=== PATIENT | female | born 1960 | race Caucasian/White ===

== ENCOUNTER 2020-02-15 05:47 | Day surgery (SDC) | payer MEDICAID, OTHER ==
[~2020-02-15] VITALS: Ht 170.2 cm; Wt 76.3 kg
[2020-02-15] MEDS ORDERED: ONDANSETRON 2MG/ML, 2ML ONE ×2 (06:12→10:38)
[2020-02-15] MEDS ORDERED: MORPHINE SULFATE 4 MG/ML, 1ML ONE ×2 (06:13→07:35)
[2020-02-15] MEDS ORDERED: FAMOTIDINE 20 MG/2 ML ONE (06:13)
--- NOTE | 2020-02-15 06:17 | NUR ---
Patient presents to ER c/o heartburn x a couple weeks and epigastric pain x a couple hours. Patient c/o N/V. Patient is in NAD. Respirations even and unlabored.
[2020-02-15] MEDS: MORPHINE SULFATE 4 MG/ML, 1ML IVPush PRN ×2 (06:28→07:38)
--- NOTE | 2020-02-15 06:28 | NUR ---
radiology delay- IV and EKG
[2020-02-15] MEDS ORDERED: ONDANSETRON 2MG/ML, 2ML IVPush ONE (06:30)
[2020-02-15] MEDS ORDERED: SODIUM CHLORIDE FLUSH 10ML SYR IVF ONE (06:30)
[2020-02-15] MEDS ORDERED: FAMOTIDINE 20 MG/2 ML IVPush ONE (06:30)
[2020-02-15 06:45] LABS: BASOPHILS # (AUTO) 0.02 x10^3/uL (0-0.1); BASOPHILS % (AUTO) 0 % (0-1); EOSINOPHILS # (AUTO) 0.08 x10^3/uL (0-0.4); EOSINOPHILS % (AUTO) 1 % (1-7); LYMPHOCYTES # (AUTO) 1.57 x10^3/uL (1-3.4); LYMPHOCYTES % (AUTO) 24 % (22-44); MD NO; MEAN CORPUSCULAR HEMOGLOBIN 30.8 pg (27.0-34.8); MEAN CORPUSCULAR HGB CONC 33.5 g/dL (32.4-35.8); MEAN PLATELET VOLUME 8.4 fL (7.4-10.4); MONOCYTES # (AUTO) 0.34 x10^3/uL (0.2-0.8); MONOCYTES % (AUTO) 5 % (2-9); NEUTROPHILS # (AUTO) 4.56 x10^3/uL (1.8-6.8); NEUTROPHILS % (AUTO) 70 % (42-75); PLATELET COUNT 246 x10^3/uL (130-400); RED BLOOD COUNT 4.96 x10^6/uL (3.82-5.3); RED CELL DISTRIBUTION WIDTH 14.1 % (9.6-15.2)
[2020-02-15 06:55] LABS: ANION GAP 5 mmol/L (5-15); CALCIUM 9.9 mg/dL (8.5-10.1); CHLORIDE 109 mmol/L (98-107)
--- NOTE | 2020-02-15 06:55 | NUR ---
Report given to OTILIA Shane.
--- NOTE | 2020-02-15 06:57 | NUR ---
REPORT RECEIVED FROM MORGAN BINGHAM.
[2020-02-15 07:00] LABS: ALANINE AMINOTRANSFERASE 29 U/L (12-78); ALKALINE PHOSPHATASE 62 U/L (45-117); BILIRUBIN,TOTAL 0.3 mg/dL (0.2-1.0); CREATININE 1.05 mg/dL (0.55-1.02); TOTAL PROTEIN 7.9 g/dL (6.4-8.2); TROPONIN I < 0.015 ng/mL (0.000-0.045)
--- NOTE | 2020-02-15 07:28 | NUR ---
ALL TESTS RESULETED. PT IS UP FOR RECHECK AT THIS TIME.
--- NOTE | 2020-02-15 07:44 | NUR ---
PT C/O 10 EPIGASTRIC PAIN. MEDICATED PER EMAR. UPDATED ON POC FOR OR. VS STABLE.
[2020-02-15] MEDS ORDERED: CEFOTETAN PMX 1GM/50ML 50 ML ONE ×2 (07:57→10:08)
[2020-02-15] MEDS ORDERED: CEFOTETAN PMX 1GM/50ML 50 ML IV ONE (08:00)
--- NOTE | 2020-02-15 08:18 | NUR ---
PT RESTING MORE COMFORTABLY AFTER MEDS. VS STABLE. UPDATED ON POC FOR 10:00 OR.
[2020-02-15] MEDS ORDERED: CHLORHEXIDINE 15 ML UDC MM STA (09:04)
--- NOTE | 2020-02-15 09:16 | NUR ---
PT TRANSFERED TO OR AT THIS TIME.
[2020-02-15] MEDS ORDERED: BUPIVACAINE/PF-EPI 0.5% 1:200K ONE (09:20)
[2020-02-15] MEDS ORDERED: LACTATED RINGERS 1,000 ML IV SCH (09:21)
[2020-02-15] MEDS ORDERED: CHLORHEXIDINE 15 ML UDC MM ONE (09:30)
[2020-02-15 09:39] VITALS: BP 144/87
[2020-02-15] MEDS ORDERED: FENTANYL PF 250 MCG/5ML ONE (09:46)
[2020-02-15] MEDS ORDERED: MIDAZOLAM 1 MG/ML, 2ML ONE (09:46)
[2020-02-15] MEDS ORDERED: DEXAMETHASONE 4 MG/ML, 1ML ONE ×2 (10:08)
[2020-02-15] MEDS ORDERED: HYDROmorphone 2 MG/ML, 1ML IVPush PRN (10:30)
[2020-02-15] MEDS ORDERED: ONDANSETRON 2MG/ML, 2ML IV PRN (10:30)
[2020-02-15] MEDS ORDERED: PROMETHAZINE 25 MG/ML, 1ML IV PRN (10:30)
[2020-02-15] MEDS ORDERED: OXYcodone 5 MG/5 ML ORAL.SOL UDC PO PRN (10:30)
[2020-02-15] MEDS ORDERED: hydrALAzine 20 MG/ML, 1ML IV PRN (10:30)
[2020-02-15] MEDS ORDERED: ACETAMINOPHEN 325 MG TABLET PO PRN (10:30)
[2020-02-15] MEDS ORDERED: FENTANYL PF 100 MCG/2ML IV PRN (10:30)
[2020-02-15] MEDS ORDERED: LABETALOL 5MG/ML, 20ML IV PRN (10:30)
[2020-02-15] MEDS ORDERED: MEPERIDINE/PF 25MG/ML,1ML IVPush PRN (10:30)
[2020-02-15] MEDS ORDERED: KETOROLAC 30 MG/1 ML ONE (10:35)
[2020-02-15] MEDS ORDERED: ROCURONIUM 10MG/ML,5ML ONE (10:44)
[2020-02-15] MEDS ORDERED: PROPOFOL 10 MG/ML, 20ML ONE (10:44)
[2020-02-15] MEDS ORDERED: SUCCINYLCHOLINE 20 MG/ML, 10ML ONE (10:44)
[2020-02-15] MEDS ORDERED: ACETAMINOPHEN 650 MG/20.3 ML UDC ONE (11:49)
[2020-02-15] MEDS ORDERED: OXYcodone 5 MG/5 ML ORAL.SOL UDC ONE (11:50)
[2020-02-15] MEDS ORDERED: DIPHENHYDRAMINE 50 MG/ML, 1ML IVPush PRN (12:30)
[2020-02-15] MEDS ORDERED: HYDROcodone/APAP 5/325 TABLET PO ONE (15:30)
== END 2020-02-15 16:00 | disposition home or self-care (01) ==
LOC: ED 06:44 → UNDOADMIN 07:41 → OUT 07:41 → EDIP 07:41 → OUT 16:00 → UNDODISIN 16:00 → EDSTATUS 19:42
PROVIDERS: ATTEND Emergency Medicine
DX: K80.00 Calculus of gallbladder with acute cholecystitis without obstruction (principal); I10 Essential (primary) hypertension; K21.9 Gastro-esophageal reflux disease without esophagitis; Z85.41 Personal history of malignant neoplasm of cervix uteri
CPT/HCPCS: 36415; 47562; 71045; 76700; 80053; 83690; 83880; 84484; 85025; 88304; 93005; J0330; J1100; J1885; J2250; J2270; J2405; J2704; J3010; J3490; J7120

== ENCOUNTER 2020-09-06 21:46 | Emergency (ER) | payer MEDICAID ==
[~2020-09-06] VITALS: Ht 170.2 cm; Wt 83.1 kg
[2020-09-06 21:50] VITALS: BP 147/103
[2020-09-06] MEDS ORDERED: DIPH,PERTUSS(ACELL),TET VAC/PF 0.5 ML IM-VACC ONE ×2 (22:00→22:54)
[2020-09-06] MEDS ORDERED: LIDOCAINE-MPF 1%, 5ML INFIL ONE (22:00)
--- NOTE | 2020-09-06 22:44 | NUR ---
PT TO [email or web address], SITTING ON GURNEY AWAKE & COMFORTABLE, RESPONDS APPROP TO STAFF, NAD, NO NEEDS AT THIS TIME.
[2020-09-06] MEDS ORDERED: LIDOCAINE-MPF 1%, 5ML ONE (22:53)
[2020-09-06] MEDS ORDERED: NEOSPORIN OINT. PKT 1 PACKET ONE (23:53)
--- NOTE | 2020-09-07 00:10 | NUR ---
Patient given wound care & discharge instructions and they have confirmed that they understand the instructions. Patient ambulatory with steady gait.
== END 2020-09-07 00:12 | disposition home or self-care (01) ==
LOC: ED 09-07
DX: S61.411A Laceration without foreign body of right hand, initial encounter (principal); G89.11 Acute pain due to trauma; W25.XXXA Contact with sharp glass, initial encounter; Y93.89 Activity, other specified; Y92.098 Other place in other non-institutional residence as the place of occurrence of the external cause; Y99.8 Other external cause status
CPT/HCPCS: 12002; 90471; 90715; 99283